=== PATIENT | female | born 1985 | race African-American/Black ===

== ENCOUNTER 2018-10-09 18:26 | Emergency (ER) | payer OTHER ==
[~2018-10-09] VITALS: Ht 170.2 cm; Wt 86.2 kg
[2018-10-09 18:40] VITALS: BP_SYST 163
--- NOTE | 2018-10-09 19:23 | NUR ---
Patient to ER bed 04 to gown for evaluation. Side rails up. Report given to WOODY Aguirre
--- NOTE | 2018-10-09 19:33 | NUR ---
Pt complains of tingling and coldness to bilateral lower extremities. Pt states she had the same feeling years ago when her iron was low. Pt states last night she started to feel tingling from the knees down to feet. Pt denies any bleeding in urine, stool, or emesis. Per pt, she stopped taking the control Deppo a few months ago. She got her period September 27 and was on her menstrual cycle for about 6 days, which is unusual for her. Pt also states she had a very heavy period. Pt denies N/V, fever. No other injuries/complaints per patient or noted.
[2018-10-09 19:43] LABS: BASOPHILS # (AUTO) 0.1 K/uL (0.0-0.2); BASOPHILS % (AUTO) 0.5 % (0.0-2.0); EOSINOPHILS % (AUTO) 0.1 % (0.0-4.0); HEMATOCRIT 43.1 % (36-48); HEMOGLOBIN 14.7 g/dL (12.0-16.0); LYMPHOCYTES # (AUTO) 0.6 K/uL (1.0-5.5); LYMPHOCYTES % (AUTO) 4.6 % (20.5-51.5); MEAN CORPUSCULAR HEMOGLOBIN 33 pg (27-31); MEAN CORPUSCULAR HGB CONC 34 % (32-36); MEAN CORPUSCULAR VOLUME 97 fL (79.0-98.0); MONOCYTES # (AUTO) 0.7 K/uL (0.0-1.0); MONOCYTES % (AUTO) 6.1 % (1.7-9.3); NEUTROPHILS # (AUTO) 10.9 K/uL (1.8-7.7); NEUTROPHILS % (AUTO) 88.7 % (40.0-70.0); PLATELET COUNT (AUTO) 218 K/uL (130-430); RED BLOOD CELL COUNT(AUTO) 4.44 MIL/uL (4.2-6.2); RED CELL DISTRIBUTION WIDTH 12.3 % (9.0-15.0); WHITE BLOOD COUNT (AUTO) 12.3 K/uL (4.8-10.8)
--- NOTE | 2018-10-09 19:43 | NUR ---
ER Dr. Causey at bedside examining patient.
[2018-10-09 20:00] LABS: CALCIUM 9.6 mg/dL (8.4-11.0); POTASSIUM 3.8 mmol/L (3.5-5.1)
[2018-10-09 20:04] LABS: INR 0.9 (0.8-1.2); PROTHROMBIN TIME 9.7 SECS (9.5-12.5)
[2018-10-09 20:05] LABS: ALBUMIN 3.9 g/dL (3.4-4.8); TOTAL BILIRUBIN 0.6 mg/dL (0.0-1.0)
--- NOTE | 2018-10-09 20:25 | NUR ---
patient resting comfortably in bed. No acute distress. will continue to monitor.
--- NOTE | 2018-10-09 21:33 | NUR ---
Pt resting comfortably in bed. NO acute distress, will Continue to monitor.
--- NOTE | 2018-10-09 22:35 | NUR ---
Patient resting in bed. No acute distress, will continue to monitor.
[2018-10-09] MEDS ORDERED: KETOROLAC TROMETHAMINE 30 MG VIAL IM ONE (22:45)
[2018-10-09] MEDS ORDERED: KETOROLAC TROMETHAMINE 30 MG VIAL IVP ONE (23:15)
[2018-10-09 23:20] VITALS: BP_SYST 146
--- NOTE | 2018-10-09 23:20 | NUR ---
Patient given written and verbal discharge instructions and verbalizes understanding. ER MD discussed with patient the results and treatment provided. Patient in stable condition. ID arm band removed. IV catheter removed intact and dressing applied, no active bleeding. Rx of Ibuprofen and Methocarbamol given. Patient educated on pain management and to follow up with PMD. Pain Scale 0. Opportunity for questions provided and answered. Medication side effect fact sheet provided.
== END 2018-10-09 23:20 | disposition home or self-care (01) ==
LOC: SED 18:26
DX: R20.2 Paresthesia of skin (principal); M62.838 Other muscle spasm
CPT/HCPCS: 36415; 70450; 80053; 81025; 85025; 85610; 85730; 86886; 86900; 86901; 96374; 99284; J1885